=== PATIENT | male | born 1955 | race Caucasian/White ===

== ENCOUNTER 2023-09-03 07:25 | Outpatient (CLI) | payer MEDICARE, BC, SELFPAY | END 2023-09-03 07:26 | disposition home or self-care (01) | LOC: INJ CL 07:27 | PROVIDERS: PCP Family Medicine; Visit Provider Family Medicine | DX: M51.36 Other intervertebral disc degeneration, lumbar region (principal); M54.16 Radiculopathy, lumbar region | CPT/HCPCS: 62323; J0702; Q9966 ==

== ENCOUNTER 2024-11-01 14:35 | Emergency (ER) | payer MEDICARE, BC, SELFPAY ==
--- OUTSIDE RECORDS SUMMARY | 2015-10-14 04:51 | XMS_ITS | Continuity of Care Document ---
Author Organization [facility] Address [address] [place] [address] Phone Care Team Providers Care Cork Tipper Name Role Phone Telma Cao MD Unavailable Unavailable Allergies, Adverse Reactions, Alerts Substance Reaction Status Criticality Sulfa (Sulfonamide Antibiotics) Unknown Active No Information Medications Medication Instructions Dosage Effective Dates (start - stop) Status Comments Voltaren 1 % topical gel apply (2G) by topical route 2 times every day to the affected area(s) 2 G - Active 100gram tubes GENERIC DICLOFENAC IS COVERED BY INS. Singulair 10 mg tablet take 1 tablet by oral route every day in the evening 10 MG - Active Astelin 137 mcg nasal spray aerosol spray 2 spray by intranasal route 2 times every day in each nostril - Active Vitamin D3 1,000 unit capsule take 1 Capsule by Oral route every day 1 Capsule - Active simvastatin 20 mg tablet take 1 tablet by oral route every day in the evening 20 MG - Active Procedures Procedure Date Office/Outpatient Visit, Est Office/Outpatient Visit, Est Office/Outpatient Visit, Est Office/Outpatient Visit, Est Office/Outpatient Visit, New Routine Venipuncture Specimen Handling Complete Cbc WAuto Diff Wbc Rbc Sed Rate, Nonautomated Assay Of Creatinine Transferase (Ast) (Sgot) Alanine Amino (Alt) (Sgpt) CReactive Protein Advance Directives Directive Yes / No Effective Date File Name No Information Encounters Encounter Description Practice Location Reason(s) For Visit Diagnoses Date Provider Providers Copied on Encounter [facility] , [address], [place], [address], [place] tel:[phone] [facility] , No Information Nash Hollis. [facility] [address], [place], [address], [place]. tel:[phone] Office/Outpa tient Visit, Est [facility] , [address], [place], [address], [place] tel:[phone] [facility] , Osteoarthrit is (chief complaint) Primary generalized (osteo)arthr itisLong term (current) use of non-steroida l anti-inflamm atories (NSAID) 6 Nash Hollis. [facility] [address], [place], [address], [place]. tel:[phone] Referring Provider: Telma Bryant, [facility] [address], [place], [address]. tel:[phone] Office/Outpa tient Visit, Est [facility] , [address], [place], [address], [place] tel:[phone] [facility] , Osteoarthrit is (chief complaint)ta ilbone pain (chief complaint) Primary generalized (osteo)arthr itisCoccygod ynia 5 Nash Hollis. [facility] [address], [place], [address], [place]. tel:[phone] Referring Provider: Telma Bryant, [facility] [address], [place], [address]. tel:[phone] [facility] , [address], [place], [address], [place] tel:[phone] [facility] , No Information 5 Nash Hollis. [facility] [address], [place], [address], [place]. tel:[phone] Office/Outpa tient Visit, Est [facility] , [address], [place], [address], [place] tel:[phone] [facility] , Osteoarthrit is (chief complaint) Osteoarthrit is, Generalized 5 Nash Hollis. [facility] [address], [place], [address], [place]. tel:[phone] Referring Provider: Telma Bryant, [facility] [address], [place], [address]. tel:[phone] Office/Outpa tient Visit, Est [facility] , [address], [place], [address], [place] tel:[phone] [facility] , Polyarthropa thy (chief complaint)ca lcific tendinitis right shoulder, s/p surge (chief complaint) Osteoarthrit is, GeneralizedU nspecified vitamin d deficiency 4 Nash Hollis. [facility] [address], [place], [address], [place]. tel:[phone] Referring Provider: Telma Bryant, [facility] [address], [place], [address]. tel:[phone] Office/Outpa tient Visit, New [facility] , [address], [place], [address], [place] tel:[phone] [facility] , Polyarthropa thy (chief complaint) Unspecified polyarthropa thy or polyarthriti s, site unspecifiedH ypertension, Unspecified Feb- 4 Nash Hollis. [facility] [address], [place], [address], [place]. tel:[phone] Referring Provider: Telma Bryant, [facility] [address], [place], [address]. tel:[phone] [facility] , [address], [place], [address], [place] tel:[phone] [facility] , No Information 4 Lynette Geller. [facility] [address], [place], [address], [place]. tel:[phone] Family History Family Member Type Diagnosis Age At Onset Problem (finding) arthritis-mother Problem (finding) cancer-father prostate Payers Payer name Insurance type Covered republican ID Authoriza tion(s) [facility] [id number] Social History Type Description Quantity Date Captured Comments Alcohol Use Details Unknown Caffeine Use Details Unknown Tobacco Use Status No Information Smoking Status No Information Sex Male Chief Complaint And Reason For Visit No Information Reason For Referral Reason For Referral No Information History Of Present Illness Encounter Date Complaint History Of Prese nt Illness Osteoarthritis Osteoarthritis tailbone pain Osteoarthritis Functional Status Date Functional Assessmen t No Information Instructions Date Instruction Additional Infor mation continue Aleve, laura gel Rel ated to Primary generalized (osteo)arthritis I recommend cbc, cr, ast,alt q 6 months to screen for medication toxicity. 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
--- OUTSIDE RECORDS SUMMARY | 2015-10-14 04:51 | XMS_ITS | Continuity of Care Document ---
Author Organization [facility] Address [address] [place] [address] Phone Care Team Providers Care [facility] Superintendent Name Role Phone Telma Cao MD Unavailable [...] tubes GENERIC DICLOFENAC IS COVERED BY INS. Astelin 137 mcg nasal spray aerosol spray 2 spray by intranasal route 2 times every day in each nostril - Active Singulair 10 mg tablet take 1 tablet by oral route every day in the evening 10 MG - Active Vitamin D3 1,000 unit capsule [...] [address], [place], [address], [place] tel:[phone] [facility] , No Information Nash Hollis. [facility] [address], [place], [address], [place]. tel:[phone] Office/Outpa tient Visit, Est [facility] , [address], [place], [address], [place] tel:[phone] [facility] , Osteoarthrit is (chief complaint) Primary generalized (osteo)arthr itisLong term (current) use of non-steroida l anti-inflamm atories (NSAID) 6 Nash Hollis. [facility] [address], [place], [address], [place]. tel:[phone] Referring Provider: Telma Bryant, [facility] [address], [place], [address]. tel:[phone] Office/Outpa tient Visit, Est [facility] , [address], [place], [address], [place] tel:[phone] [facility] , Osteoarthrit is (chief complaint)ta ilbone pain (chief complaint) Primary generalized (osteo)arthr itisCoccygod ynia 5 Nash Hollis. [facility] [address], [place], [address], [place]. tel:[phone] Referring Provider: Telma Bryant, [facility] [address], [place], [address]. tel:[phone] [facility] , [address], [place], [address], [place] tel:[phone] [facility] , No Information 5 Nash Hollis. [facility] [address], [place], [address], [place]. tel:[phone] Office/Outpa tient Visit, Est [facility] , [address], [place], [address], [place] tel:[phone] [facility] , Osteoarthrit is (chief complaint) Osteoarthrit is, Generalized 5 Nash Hollis. [facility] [address], [place], [address], [place]. tel:[phone] Referring Provider: Telma Bryant, [facility] [address], [place], [address]. tel:[phone] Office/Outpa tient Visit, Est [facility] , [address], [place], [address], [place] tel:[phone] [facility] , Polyarthropa thy (chief complaint)ca lcific tendinitis right shoulder, s/p surge (chief complaint) Osteoarthrit is, GeneralizedU nspecified vitamin d deficiency 4 Nash Hollis. [facility] [address], [place], [address], [place]. tel:[phone] Referring Provider: Telma Bryant, [facility] [address], [place], [address]. tel:[phone] Office/Outpa tient Visit, New [facility] , [address], [place], [address], [place] tel:[phone] [facility] , Polyarthropa thy (chief complaint) Unspecified polyarthropa thy or polyarthriti s, site unspecifiedH ypertension, Unspecified Feb- 4 Nash Hollis. [facility] [address], [place], [address], [place]. tel:[phone] Referring Provider: Telma Bryant, [facility] [address], [place], [address]. tel:[phone] [facility] , [address], [place], [address], [place] tel:[phone] [facility] , No Information 4 Lynette Geller. [facility] [address], [place], [address], [place]. tel:[phone] Family History Family Member Type Diagnosis Age At Onset Problem (finding) arthritis-mother Problem (finding) cancer-father prostate Payers Payer name Insurance type Covered green party ID Authoriza tion(s) [facility] [id number] Social History Type Description Quantity Date Captured [...] to screen for medication toxicity. Related to assisted (current) use of non-steroidal anti-inflammatories (NSAID) continue conservativ e measures, consider pain management evaluation Related to Coccygodynia Assessments Type Assessment Date No Information Patient Care Teams Name Effective Dates (start - stop) Status Members No Information
--- OUTSIDE RECORDS SUMMARY | 2024-11-01 14:37 | XMS_ITS | Clinical Summary ---
Author Organization [employer] [facility] Address [address] [place] [id number] Care Team Providers Care Data Control Assistant Name Role Phone Austin Aguirre MD Primary Care Provider [phone] Ana Luisa Vazquez MD Unavailable [phone] Allergies Active Allergy Reactions Criticality Noted Date Comments Dust Mites 05/22/2008 Sulfa (Sulfonamide Antibiotics) Rash 04/11 Medications cholecalciferol (VITAMIN D-3) 2,000 unit capsule Take 1 capsule by mouth once daily. 0 5 Active diclofenac topical (VOLTAREN) 1 % gelIndications: Arthritis Apply twice daily as needed for pain.Apply topically to affected area(s) 2 times daily. 100 g 4 1 Active cetirizine 10 mg tablet Take 10 mg by mouth once daily. Active tadalafiL 5 mg tabletIndicatio ns:BPH without urinary obstruction Take 1 Tablet (5 mg) by mouth once daily. 90 Tablet 3 5 Active traZODone 50 mg tabletIndicatio ns:Insomnia, idiopathic Take 1-2 Tablets (50-100 mg) by mouth at bedtime if needed for Sleep. Wait until they call for this. 180 Tablet 2 5 Active meloxicam 15 mg tabletIndicatio ns:Medicare annual wellness visit, subsequent Take 1 Tablet (15 mg) by mouth once daily. Take as needed.for joint pain. 90 Tablet 1 5 Active lisinopriL 10 mg tabletIndicatio ns:Hypertension , unspecified type Take 1 Tablet (10 mg) by mouth once daily. Wait until they call for this. 90 Tablet 3 5 Active azelastine 137 mcg/actuation nasal sprayIndication s:Non-seasonal allergic rhinitis due to other allergic trigger Inhale 1 [place] into affected nostril(s) two times daily. Wait until they call for this. 30 mL 3 5 Active atorvastatin 20 mg tabletIndicatio ns:Hyperlipidem ia with target LDL less than 130 Take 1 Tablet (20 mg) by mouth at bedtime. 90 Tablet 3 5 Active azelastine 137 mcg/actuation (ASTELIN) nasal sprayIndication s:Non-seasonal allergic rhinitis due to other allergic trigger Inhale 1 [place] into affected nostril(s) two times daily. Wait until they call for this. 30 mL 3 4 10/17/19 25 Discontinu ed(Reorder (E-cancel not sent)) lisinopriL (PRINIVIL; ZESTRIL) 10 mg tabletIndicatio ns:Hypertension , unspecified type Take 1 Tablet (10 mg) by mouth once daily. Wait until they call for this. 90 Tablet 4 10/17/19 25 Discontinu ed(Reorder (E-cancel not sent)) sildenafil citrate (VIAGRA) 100 mg tabletIndicatio ns:Other male erectile dysfunction Take 1 Tablet (100 mg) by mouth once daily if needed for Erectile Dysfunction. Take 30min to 4 hours before sexual activity. Max 100mg/24hr. 40 Tablet 4 10/17/19 25 Discontinu ed(*Med complete/R egimen complete/L evel of care change) atorvastatin (LIPITOR) 20 mg tabletIndicatio ns:Hyperlipidem ia with target LDL less than 130 Take 1 Tablet (20 mg) by mouth at bedtime. 90 Tablet 4 10/17/19 25 Discontinu ed(Reorder (E-cancel not sent)) traZODone (DESYREL) 50 mg tabletIndicatio ns:Insomnia, idiopathic Take 1-2 Tablets (50-100 mg) by mouth at bedtime if needed for Sleep. 180 Tablet 2 4 10/17/19 25 Discontinu ed(Reorder (E-cancel not sent)) meloxicam 15 mg tabletIndicatio ns:Medicare annual wellness visit, subsequent,Hand arthritis TAKE 1 TABLET(15 MG) BY MOUTH DAILY 90 Tablet 1 4 10/17/19 25 Discontinu ed(Reorder (E-cancel not sent)) Active Problems Problem Noted Date Diagnosed Date Colon polyp 01/18/2023 Overview (01/18/2023): Colonoscopy 01/2023 TA, repeat in 7 years Sensorineural hearing loss, bilateral 08/06/2018 s/p right shoulder arthrosco pic extensive debridement of glenohumeral joint and calcific material subacromial space, SAD, arthroscopic-assisted mini open subpec biceps transplantation 03.17.2014 08/05/2014 Suspected cervical DDD with cervical radicular p ain 09/30/2013 Hyperlipidemia LDL goal < 130 06/17/2013 Chronic left SI joint pain and arthritis 014 Insomnia 06/17/2013 Basal cell carcinoma of left upper back 02/15/20 12 Other Diseases of Nasal Cavity and Sinuses 05/22 Allergic rhinitis, cause unspecified 12/23/2007 Overview (12/23/2007): Allergic to tree pollens and dust mites. Typically has trouble with midsummer, early spring, fall Encounters Date Type Department Care Team Description 10/30/[address] [address] Austin Aguirre MD 10/27/2024 12:30 PM CDT Ancillary Procedure [facility] [place] [address] [place] [address] Arrived 10/27/2024 Travel 10/27/[address] [place] [address] Austin Aguirre MD Imaging 10/20/[address] [address] Austin Aguirre MD Prior Authorization (tadalafiL 5 mg tablet APPROVED 10/06/24 UNTIL FURTHER NOTICE) 10/16/2024 8:25 AM CDT Office Visit [facility] [place] [address] [place] [address] Austin Aguirre MD Medicare ANNUAL (subsequent) Visit (69 years) 10/16/2024 Telephone [facility] [place] [address] [place] [address] Austin Aguirre MD Follow Up 10/16/2024 Travel 10/14/2024 7:30 AM CDT Orders Only [facility] [place] [address] [place] [address] Lab, [facility] 10/14/2024 Travel 09/10/2024 Orders Only [facility] Scanner 1 scan: (1-Ord) [facility], INJECTION LEFT GH JOINT, 09/10/2024 from Last 3 Months Immunizations Immunization Administration Dates Next Due COVID-19 VACCINE SPIKEVAX (M ODERNA 50MCG/0.5ML) 12YO+ PFS 10/16/2023,03/12/2023 COVID-19 vaccine (goOutMap-Bio NTech 30mcg/0.3mL) 12YO+ BIVALENT PF, MDV 03/30/2022 COVID-19 vaccine (Pfizer-Bio NTech 30mcg/0.3mL) PF, MDV 09/18/2021,03/15/2021,08/26/2020,08/05 Hepatitis A (Adult) 08/03/2022 Influenza A (H1N1), Inactiva chava (Age >=3 Years) 05/30/2009 Influenza Virus, Unspecified 03/26/2013 Influenza, High-dose Inactivated 04/09/2024 Influenza, High-dose Quadriv alent Inactivated 03/12/2023 Influenza, IIV3 (Age 6-35 mos) 02/16/2009 Influenza, IIV3 (Age >=3 years) 02/23/20 17,03/10/2016,03/23/2014,03/21,05/22/2008,03/18/2006 Influenza, IIV4 03/11/2020,03/10/2014 Influenza, IIV4 (=>6mos) MDV 03/23/2019, 02/19/2018,03/25/2017,04/07,03/14/2015 Influenza, Inactivated AIIV4 (Age 65+ Years) Preserv Free 03/30/2022,03/31/2021 Pneumococcal Conj 20-valent (Prevnar 20) 10/12/2022 Pneumococcal Poly,23-Valent (Pneumovax) 04/12/2021 RSV, Recombinant ADJ Reconst ituted (Arexvy 120MCG/0.5mL) 03/12/2023 Td (Age >=7 Years) 01/27/2006 Td, Preservative Free (age >= 7 Years) 6 Tdap 10/17/2023,02/06/2012 Zoster (Shingrix-RZV, recombinant) 10/23/2018, Family History Medical History Relation Name Comments Cancer Father of this at 83 prostate Hyperlipidemia Father Hypertension Father Arthritis Mother Hyperlipidemia Mother Hypertension Mother Other Mother of old age at 90 Alcoholism Sister 2 at 58 poss ibly from drinking; stenosis renal artery Relation Name Status Comments Father Mother Sister 1 Alive Sister 2 Social History Tobacco Use Types Packs/Day Years Used Date Smoking Tobacco: Never Smokeless Tobacco: Never Tobacco Cessation:Counseling Given: Yes Alcohol Use Standard Drinks/Week Comments Yes 0 (1 standard drink = 0.6 oz pur e alcohol) once or twice per week PHQ-2 Answer Date Recorded PHQ-2 TOTAL SCORE 0 10/16/2024 Social Connections Answer Date Recorded Do you often feel lonely or isolated from those around you? 0 10/16/2024 Alcohol Use Answer Date Recorded How often do you have a drink containing alcohol ? 2 10/16/2024 How many drinks containing a lcohol do you have on a typical day when you are drinking? 0 10/16/2024 How often do you have five or more drinks on one occasion? 0 10/16/2024 Financial Resource Strain Answer Date R ecorded Difficulty of Paying Living Expenses 3 10/16/2024 Difficulty of Paying Living Expenses Not on file 10/16/2024 Food Insecurity Answer Date Recorded Do you worry your food will run out before you are able to buy more? 1 10/16/2024 Transportation Needs Answer Date Record ed Does lack of transportation keep you from medica l appointments? 1 10/16/2024 Does lack of transportation keep you from work, meetings or getting things that you need? 1 10/16/2024 Housing Stability Answer Date Recorded What is your housing situation today? 1 10/16/2024 Utilities Answer Date Recorded Do you have trouble paying f or utilities (for example, heat, electricity, water, phone)? 1 10/16/2024 Sex and Gender Information Value Date Recorded Sex Assigned at Not on file Legal Sex Male 6:29 AM AUTOM[employer]IC [employer] Gender Identity Not on file Sexual Orientation Not on file Obstetrics History Last Filed Vital Signs Vital Sign Reading Time Taken Comments Blood Pressure 118/83 10/16/2024 9:06 AM CDT Pulse 73 10/16/2024 8:36 AM CDT Temperature 36.4 C (97.6 F) 10/16/2024 8:36 AM CDT Respiratory Rate 16 01/15/2023 2:40 PM CDT Oxygen Saturation 99% 10/16/2024 8:36 AM CDT Inhaled Oxygen Concentration - - Weight 72.8 kg (160 lb 6.4 oz) 10/16/2024 8:36 A M CDT Height 165.4 cm (5' 5.12) 10/16/2024 8:36 AM CD T Body Mass Index 26.6 10/16/2024 8:36 AM CDT Plan of Treatment Upcoming Encounters Date Type Department Care Team (Late st Contact Info) Description 11/25/2024 7:20 AM CDT Procedure Only [facility] [place] [address] [place] [address] Ian Sarmiento MD [address] [place] [address] Health Maintenance Due Date Last Done Comments COVID-19 vaccine series ( season) 2024 04/09/2024, 10/16/2023, 03/12/2023, Additional history exists BMI (ht and wt on same day) for age 18+ 10/16/2025 10/16/2024, 10/16/2023, 10/12/2022, Additional history exists Depression screening for age 12+ 10/16/2025 10/16/2024, 10/16/2024, 10/16/2023, Additional history exists Medicare Wellness for age 65+ 10/17/2025 10/16/2024, 10/16/2023, 10/12/2022, Additional history exists Lipids for age 45-75 10/14/2029 10/14/2024, 10/11/2023, 10/09/2022, Additional history exists Colonoscopy through age 75 01/15/203001/15, 01/15/2023, 12/16/2012, Additional history exists Tetanus booster 10/16/2033 10/17/2023, 01/09, 01/27/2006, Additional history exists Zoster (shingles) series for age 50+ Completed 10/23/2018, 07/18/2018 Hepatitis C screening for age 18-79 Completed 10/05/2021 Pneumococcal series for age 50+ Completed 10/12/2022, 04/12/2021 RSV vaccine for adults or Completed 03/12/2023 Tdap Completed 10/17/2023, 02/06/2012 Influenza Vaccine Completed 04/09/2024, , 03/31/2021, Additional history exists Hepatitis B series for 19+ Aged Out N o longer eligible based on patient's age to complete this topic Medical Devices Implanted Type Area Therapist Device Identifier Shelf Expiration Date Model / Serial / Lot Ancr Sut 1.4mm Iconix 1 W/1 Strand #2 Force Fiber - [id number] Implanted:Qty: 2 on 03/17/2014 at [facility] Right: Shoulder [employer] [id number] / / [id number] Procedures Procedure Name Priority Date/Time Associated Diagnosis Comments XR TOES 3 VIEWS RIGHT Routine 10/27/2024 12:33 PM CDT Great toe pain, right BASIC METABOLIC PANEL Routine 10/14/2024 7:28 AM CDT Hyperlipidemia LDL goal < 130 LIPID PANEL W REFLEX MEASURED LDL Routine 10/14/2024 7:28 AM CDT Hyperlipidemia LDL goal < 130 PSA TOTAL Routine 10/14/2024 7:28 AM CDT Prostate cancer screening SCAN-OPERATIVE/PROCE DURE REPORT 09/10/2024 12:00 AM CDT COLONOSCOPY 01/15/2023 1:54 PM CDT ANTI HCV Add On 10/05/2021 11:40 AM CDT Need for hepatitis C screening test from Last 3 Months or Most Recently Relevant to Health Maintenance Results * XR TOES 3 VIEWS RIGHT (10/27/2024 12:33 PM CDT) Anatomical Region Laterality Modality TOES Computed Radiogr aphy 10/27/2024 12:4 5 PM CDT Narrative 10/27/2024 12:45 PM CDT For Patients: As a result of the Cures Act, medical imaging exams and procedure reports are released immediately into your electronic medical record. You may view this report before your referring provider. If you have questions, please contact your health care provider. Indication: Great toe pain, right Technique: Three views right great toe Comparison: 2010 Findings: Narrowing and spurring at the 1st MTP joint. Hallux valgus with bunion. No erosions. No fracture. Impression: First MTP degenerative joint disease. Dictated by Daquan Kirby MD @ 10/27/2024 12:45:01 PM (Electronically Signed) Procedure Note Daquan Kirby MD - 10/27/2024 For Patients: As a result of the Cures Act, medical imagingexams and procedure reports are released immediately into your electronicmedical record. You may view this report before your referring provider.If you have questions, please contact your health care provider. Indication: Great toe pain, right Technique: Three views right great toe Comparison: 2010 Findings: Narrowing and spurring at the 1st MTP joint. Hallux valgus with bunion. Noerosions. No fracture. Impression: First MTP degenerative joint disease. Dictated by Daquan Kirby MD @ 10/27/2024 12:45:01 PM (Electronically Signed) Austin Aguirre MD GENERAL IMAGING Final Resu lt * LIPID PANEL W REFLEX MEASURED LDL (10/14/2024 7:28 AM CDT) CHOLESTEROL, TOTAL 180 <200 mg/dL [facility] HDL CHOLESTEROL 76 > OR = 40 mg/dL [facility] TRIGLYCERIDES 67 <150 mg/dL [facility] LDL-CHOLESTEROL 89 mg/dL (calc) [facility] Comment: Reference range: <100 Desirable range <100 mg/dL for primary prevention; <70 mg/dL for patients with CHD or diabetic patients with > or = 2 CHD risk factors. LDL-C is now calculated using the Adalberto calculation, which is a validated novel method providing better accuracy than the Friedewald equation in the estimation of LDL-C. Nato PHILLIPS et al. SANGEETHA. 2013;310(19): 6902-9384 (http://education.Loyalis/faq/DRN789) CHOL/HDLC RATIO 2.4 <5.0 (calc) [facility] NON HDL CHOLESTEROL 104 <130 mg/dL (calc) [facility] Comment: For patients with diabetes plus 1 major ASCVD risk factor, treating to a non-HDL-C goal of <100 mg/dL (LDL-C of <70 mg/dL) is considered a therapeutic option. Blood BLOOD SPECIMEN / Unknown 10/14/2024 7:28 AM CDT 10/14/2024 7:28 AM CDT Austin Aguirre MD CHEMISTRY Final Resu lt [facility] [address] [place] [address], [facility] [address] [place] [address] * PSA TOTAL (DIAG OR SCREEN) (10/14/2024 7:28 AM CDT) PSA, TOTAL 0.82 < OR = 4.00 ng/mL [facility] Comment: The total PSA value from this assay system is standardized against the WHO standard. The test result will be approximately 20% lower when compared to the equimolar-standardized total PSA (Galileo Seligman). Comparison of serial PSA results should be interpreted with this fact in mind. This test was performed using the Siemens chemiluminescent method. Values obtained from different assay methods cannot be used interchangeably. PSA levels, regardless of value, should not be interpreted as absolute evidence of the presence or absence of disease. Blood BLOOD SPECIMEN / Unknown 10/14/2024 7:28 AM CDT 10/14/2024 7:28 AM CDT us Austin Aguirre MD CHEMISTRY Final Resu lt [facility] [address] [place] [address], [facility] [address] [place] [address] * BASIC METABOLIC PANEL (10/14/2024 7:28 AM CDT) GLUCOSE 86 65 - 99 mg/dL [facility] Comment: Fasting reference interval UREA NITROGEN (BUN) 25 7 - 25 mg/dL [facility] CREATININE 1.11 0.70 - 1.35 mg/dL [facility] EGFR 72 > OR = 60 mL/min/1. 73m2 [facility] BUN/CREATININE RATIO SEE NOTE: 6 - 22 (calc) [facility] Comment: Not Reported: BUN and Creatinine are within reference range. SODIUM 136 135 - 146 mmol/L [facility] POTASSIUM 4.2 3.5 - 5.3 mmol/L [facility] CHLORIDE 104 98 - 110 mmol/L [facility] CARBON DIOXIDE 23 20 - 32 mmol/L [facility] ELECTROLYTE BALANCE 9 7 - 17 mmol/L (calc) [facility] CALCIUM 9.3 8.6 - 10.3 mg/dL [facility] Blood BLOOD SPECIMEN / Unknown 10/14/2024 7:28 AM CDT 10/14/2024 7:28 AM CDT us Austin Aguirre MD CHEMISTRY Final Resu lt [facility] [address] [facility] [place] [address], [facility] [address] [place] [address] * SCAN-OPERATIVE/PROCEDURE REPORT (09/10/2024 12:00 AM CDT) Scanner OTHER Final Result * COLONOSCOPY (01/15/2023 1:54 PM CDT) 01/15/2023 1:54 PM CDT Narrative Transcriptions Nato Brennan MD - 01/15/2023 2:31 PM CDT Patient Name: Jerome Wilson Procedure Date: 01/15/2023 Gender: Male Date of : 1955 Admit Type: Outpatient Procedure: Colonoscopy Proceduralist: Nato Brennan MD , Pilar Ramos (Nurse), Danielle Palacios (Nurse) Indications/Pre-Op Diagnosis: Screening for colorectal malignant neoplasm, Last colonoscopy: December 2012 Medications: Fentanyl 100 micrograms IV, Midazolam 4 mgIV, The level of sedation administered wasmoderate Procedure Description: The patient had risks, benefits and alternatives explained to andgave informed consent. The patient had a stable cardiopulmonary status and judged an adequate candidate for conscious sedation. The [id number] was passed through the anus and advanced to the cecum, identified by appendiceal orifice and ileocecal valve. Thecolonoscopy was performed without difficulty. The patient tolerated the procedure well. The quality of the bowel preparation was good. The ileocecal valve, appendiceal orifice, and rectum were photographed. Complications: No immediate complications. Estimated Blood Loss & Specimen: Estimated blood loss: none. Specimen collected - Yes and sent to Laboratory Findings: The perianal and digital rectal examinations were normal. A 3 mm polyp was found in the sigmoid colon. The polyp was sessile.The polyp was removed with a cold biopsy forceps. Resection and retrieval were complete. A few small-mouthed diverticula were found in the sigmoid colon. The exam was otherwise without abnormality. Impressions/Post-Op Diagnosis: - One 3 mm polyp in the sigmoid colon, removed with a cold biopsy forceps. Resected and retrieved. - Diverticulosis in the sigmoid colon. - The examination was otherwise normal. Recommendation: - Patient has a contact number available for emergencies. The signsand symptoms of potential delayed complications were discussed with the patient. Return to normal activities tomorrow. Written discharge instructions were provided to the patient. - Resume previous diet. - Continue present medications. - Await pathology results. - Repeat colonoscopy for surveillance based on pathology results. Moderate Sedation: A time out was performed before the procedure. Moderate (conscious) sedation was administered by the endoscopy nurse and supervised bythe endoscopist. The following parameters were monitored: oxygensaturation, heart rate, blood pressure, EKG, CO2, respiratory rate, adequacy of pulmonary ventilation and reponse to care. Please refer to the patient's medical record flowsheets and nursing notes for moderate sedation details. Total physician intraservice time was 19 minutes. Nato Brennan MD 01/15/2023 2:31:40 PM This report has been signed electronically. Note Initiated On: 01/15/2023 1:54 PM Procedure Code(s): --- Professional --- 46724, Colonoscopy, flexible; with biopsy, single or multiple Diagnosis Code(s): --- Professional --- Z12.11, Encounter for screening formalignant neoplasm of colon D12.5, Benign neoplasm of sigmoid colon K57.30, Diverticulosis of large intestine without perforation or abscess withoutbleeding CPT copyright 2021 [employer]. All rights reserved. The codes documented in this report are preliminary and upon head rigger reviewmay be revised to meet current compliance requirements. Scope In: 2:10:50 PM Scope Withdrawal Time 0 hours 8 minutes 43 seconds Scope Out: 2:25:58 PM us Nato Brennan MD PROCEDURE ORD Final Res ult * ANTI HCV (10/05/2021 11:40 AM CDT) HEPATITIS C ANTIBODY Non-React mukund Non-React mukund 10/09/2021 2:07 PM CDT [facility] Tagged [facility] Comment:Antibodies to HCV no t detected; does not exclude the possibility of exposure to HCV. Blood BLOOD SPECIMEN / Unknown Venipuncture / Unknown 10/05/2021 11:40 AM CDT 10/05/2021 11:43 AM CDT us Austin Aguirre MD SEND OUTS Final Resu lt [facility] [address] [place] [address], [place] from Last 3 Months or Most Recently Relevant to Health Maintenance Insurance MEDICARE PART B HB ONLY BLUE CROSS [employer] BLUE MR PB ONLY Advance Directives Documents on File Type Date Recorded Patient Restaurant Supervisor Expl anation Healthcare Directive 07/01/2024 025 * Full Code (Latest Code Status on File) Date Activated Date Inactivated Comments 03/17/2014 9:06 AM 03/17/2014 1:20 PM * Full Code Date Activated Date Inactivated Comments 03/17/2014 5:34 AM 03/17/2014 9:06 AM * Full Code Date Activated Date Inactivated Comments 06/27/2007 10:20 AM 06/27/2007 1:14 PM Care Teams Data Control Assistant Relationship Specialty Start Date End Date Austin Aguirre MD [address] [place] [address] PCP - General 12/25/05 Ana Luisa Vazquez MD [address] [place] [address] Ophthalmology Surgery 12/21/11
[2024-11-01 15:07] VITALS: BP 137/88; PULSE 70; RESP 18; TEMP 36.3; O2SAT 97; BMI 27.0
--- NOTE | 2024-11-01 15:44 | ED_ITS ---
HPI - Wound/Laceration General Chief Complaint: Laceration/Wound Stated Complaint: R leg cut Time Seen by Provider: 11/01/24 15:18 History of Present Illness HPI narrative: This 69-year-old male comes in with a laceration on his right lower leg. Something fell off of a shelf and caused a curvilinear flap type laceration over the abarca of his right lower leg. His tetanus status is up-to-date. Related Data Home Medications ?Medication ?Instructions ?Recorded ?Confirmed atorvastatin 20 mg tablet 20 mg PO QDAY 02/17/2402/16 lisinopril 10 mg tablet 10 mg PO QDAY 02/17/2402/16 meloxicam 15 mg tablet 15 mg PO QDAY PRN 02/17/24 0 02/17/24 trazodone 100 mg tablet 100 mg PO QHS PRN 02/17/24 0 02/17/24 Allergies Allergy/AdvReac Type Severity Reaction Status Date / Time Sulfa (Sulfonamide Allergy Intermediate Rash Verified 11/01/24 15:07 Antibiotics) Review of Systems Status of ROS: Reports: 10 or more systems reviewed and unremarkable except as noted in History and below Narrative: Constitutional: No fevers, no weight gain or loss. Eyes: No discharge. No vision changes. HENT: No congestion, no sore throat, no ear pain. Cardiovascular: No chest pain, no palpitations. Respiratory: No shortness of breath, no wheezes, no cough. Gastrointestinal: No abdominal pain, no vomiting, no diarrhea. Genitourinary: No dysuria, no hematuria. Musculoskeletal: Normal range of motion. Skin: No rashes, no pruritis. Neurological: No dizziness, weakness, sensory change, speech change. Endo/Heme/Allergies: No bruising or bleeding. No polydipsia. Pysch: no suicidality, no anxiety, no insomnia. All other systems reviewed and are negative. Exam Narrative: Exam Narrative: Constitutional: Well-developed, well-nourished, no acute distress. HEENT: Normocephalic, atraumatic. Neck: Normal range of motion. Nontender. Supple. Heart: Intact distal pulses. Lungs: No chest discomfort. No wheezes, rhonchi, or rales. Abdomen: Nontender. Back: Normal range of motion. Extremities: Normal range of motion. Laceration measuring 3 cm overlying the right tibia. Skin: Intact. No rash. Warm. No erythema or pallor. Neurologic: No altered sensation. No weakness. Alert and oriented. Psychiatric: No suicidality. No anxiety or depression. No insomnia. Nursing notes and vitals signs are reviewed. Const: Vital Signs, click to edit/add: Vital Signs - 24 hr 11/01/24 15:07 Temperature 97.4 F L Pulse Rate [Pulse Oximeter] 70 Respiratory Rate 18 Blood Pressure [Ri ght Upper Arm] 137/88 Pulse Oximetry 97 Oxygen Delivery Me thod Room Air Course Vital Signs Vital signs: Initial Vital Signs Temperature 97.4 F L 11/01/24 15:07 Temperature Source Temporal Artery Scan 11/01/24 15:07 Pulse Rate 70 11/01/24 15:07 Respiratory Rate 18 11/01/24 15:07 Blood Pressure 137/88 11/01/24 15:07 Blood Pressure Mean 104 11/01/24 15:07 Blood Pressure Position Sitting 11/01/24 15:07 Pulse Oximetry 97 11/01/24 15:07 Oxygen Delivery Method Room Air 11/01/24 15:07 Vital Signs Temperature 97.4 F L 11/01/24 15:07 Pulse Rate 70 11/01/24 15:07 Respiratory Rate 18 11/01/24 15:07 Blood Pressure 137/88 11/01/24 15:07 Pulse Oximetry 97 11/01/24 15:07 Oxygen Delivery Method Room Air 11/01/24 15:07 Temperature 97.4 F L 11/01/24 15:07 Pulse Rate 70 11/01/24 15:07 Respiratory Rate 18 11/01/24 15:07 Blood Pressure 137/88 11/01/24 15:07 Pulse Oximetry 97 11/01/24 15:07 Oxygen Delivery Method Room Air 11/01/24 15:07 MDM - Wound/Laceration MDM Narrative Medical decision making narrative: This patient is a laceration on his right lower leg. The wound was cleansed and skin edges are nicely approximated so this was repaired nicely with Dermabond. Instructions regarding wound care were given. Discharge Plan Discharge Clinical Impression: Laceration Patient Disposition: Home, Self-Care Condition: Improved Additional Instructions: Keep wound clean and dry. Follow up with MD as needed. Prescriptions: No Action lisinopril 10 mg tablet 10 mg PO QDAY atorvastatin 20 mg tablet 20 mg PO QDAY meloxicam 15 mg tablet 15 mg PO QDAY PRN trazodone 100 mg tablet 100 mg PO QHS PRN Follow Up/Referrals: Austin Aguirre MD [Primary Care Provider, Family Practice] Stand Alone Forms: [facility] Info Instructions
== END 2024-11-01 15:58 | disposition home or self-care (01) ==
LOC: ED 15:56
PROVIDERS: Emergency Provider Emergency Medicine Emergency Medical Services; PCP Family Medicine
DX: S81.811A Laceration without foreign body, right lower leg, initial encounter (principal); W26.9XXA Contact with unspecified sharp object(s), initial encounter
CPT/HCPCS: 12001; 99282; 99284